=== PATIENT | male | born 1950 | race Caucasian/White ===

== ENCOUNTER → 2021-01-20 01:15 | Outpatient (CLI) | payer OTHER, SELFPAY ==
[2021-01-20 22:45] LABS: SARS-CoV-2 RNA PCR Negative
== END ==
PROVIDERS: PCP Family Medicine Adolescent Medicine; Visit Provider Physician Assistant
DX: R68.89 Other general symptoms and signs (principal); Z20.822 Contact with and (suspected) exposure to COVID-19
CPT/HCPCS: C9803; U0003; U0005

== ENCOUNTER → 2021-08-13 12:48 | Outpatient (CLI) | payer OTHER, SELFPAY ==
--- NOTE | ~2021-08-13 | MR_ITS ---
EXAMINATION: MR brain/brain stem wo con DATE: 08/13/2021 13:27 INDICATION: Amnesia TECHNIQUE: Magnetic resonance imaging (MRI) of the brain and brainstem was performed without intraven ous contrast. Sequences included sagittal and axial T1-weighted SE, axial diffusion-weighted FS SE, a xial T2*-weighted GRE, axial T2-weighted FLAIR Propeller, and axial T2-weighted Propeller. Apparent d iffusion coefficient (ADC) maps were created. COMPARISON: None. FINDINGS: Normal brain parenchymal volume for age. There are scattered mild periventricular and subco rtical white matter changes, most likely related to small vessel ischemic disease (microangiopathy). No ventriculomegaly or midline shift. No acute intracranial hemorrhage, infarction, mass or mass effe ct. Midline sagittal images demonstrate a normal corpus callosum and craniovertebral junction. Orbits are symmetric without disconjugate gaze. IMPRESSION: 1. No acute intracranial abnormality. 2: Chronic age-related findings. Reviewed, dictated and finalized at location A.
== END ==
PROVIDERS: PCP Family Medicine Adolescent Medicine; Visit Provider Family Medicine Adolescent Medicine
DX: R41.3 Other amnesia (principal)
CPT/HCPCS: 70551

== ENCOUNTER 2024-06-07 01:08 | Day surgery (SDC) | payer OTHER, SELFPAY ==
[2024-05-18 11:33] VITALS: BMI 32.1
[2024-06-07 07:51] VITALS: BP 151/79; PULSE 98; RESP 16; TEMP 36.1; O2SAT 96
[2024-06-07] MEDS: LACTATED RINGERS 1,000 ML 150 ML IV CONT (08:03)
[2024-06-07 08:05] LABS: Glucose Point of Care 112 mg/dl (65-105)
--- NOTE | 2024-06-07 08:41 | WPDANESEPPF ---
Anes - Initial Pre Proc Eval Procedure: Operation Date: 06/07/24 09:00 Proposed Procedures p Colonoscopy - Guicho Coronel MD Date/Time: 06/07/24 08:41 Surgeon: Guicho Coronel MD Pre Op Diagnosis: hx colon polyps Patient Data Age: 73 Gender: M Height: 1.7 m Weight: 89 kg Last Vital Signs Temp 96.9 F L 06/07/24 07:51 Pulse 98 06/07/24 07:51 Resp 16 06/07/24 07:51 BP 151/79 H 06/07/24 07:51 Pulse Ox 96 06/07/24 07:51 O2 Del Method Room Air 06/07/24 07:51 Allergies Allergy/AdvReac Type Severity Reaction Status Date / Time sitagliptin Allergy Intermediate Other Verified 06/07/24 07:48 Penicillins Allergy Mild Hives Verified 06/07/24 07:48 metformin AdvReac Intermediate Diarrhea Verified 06/07/24 07:48 pioglitazone AdvReac Intermediate Other Verified 06/07/24 07:48 Home Medications ?Medication ?Instructions ?Recorded ?Confirmed ?Type aspirin 81 mg tablet,delayed 81 mg PO DAILY 07/27/21 06/07/24 History release (Adult Low Dose Aspirin) blood sugar diagnostic (OneTouch #50 ea 05/08/23 06/07/24 Rx Ultra Test strips) carvedilol 25 mg tablet 25 mg PO BID 07/24/23 06/07/24 History losartan 50 mg tablet 50 mg PO DAILY 07/24/23 06/07/24 History amlodipine 10 mg tablet See Rx Instructions .Route 11/30/23 06/07/24 Rx .COMPLEX #90 tabs furosemide 40 mg tablet 40 mg PO QAM #90 tabs 03/30/24 06/07/24 Rx atorvastatin 80 mg tablet 80 mg PO DAILY #90 tabs 05/21/24 06/07/24 Rx tirzepatide 5 mg/0.5 mL 5 mg (0.5 mL) subcut WEEKLY #2 mL 06/01/24 06/07/24 Rx subcutaneous pen injector (Mounjaro) glimepiride 4 mg tablet See Rx Instructions .Route 06/04/24 06/07/24 Rx .COMPLEX #90 tabs Laboratory Tests 06/07/24 08:01 POC Capillary Glucose 112 H mg/dl (65-105) Patient hx anesthesia problems: none Family hx anesthesia problems: none Results Review: All pre-operative results and documents have been reviewed as part of the pre-operative evaluation. [facility] Past Medical History Medical History Abnormal colonoscopy 03/13 3 polyps (1 tubular adenoma) Repeat 03/18 Biceps rupture, distal Surgery 2013 Personal history of malignant neoplasm of prostate Surgical History Surgical History History of appendectomy History of prostatectomy 2019 History of right inguinal hernia repair 2014 Family History Family History Father Hypertension Acute myocardial infarction Family history of cardiovascular disease Heart disease Mother Family history of malignant neoplasm of ovary Other Colon polyp Diabetes mellitus Malignant neoplasm of prostate Social History Social History Smoking status: Never smoker Second hand tobacco smoke exposure: No Alcohol intake: never Substance use: never Substance use type: does not use Living arrangements: with family Occupation/Education: retired Gender identity (if verbalized by the patient): Male Sexual Orientation (if Verbalized by the Patient): Straight or Heterosexual Spiritual care concerns: No Agree to blood products: Yes Anes - Eval Final PreProcedure Day of Procedure 06/07/24 08:41 Patient weight: obese Heart: regular rate and rhythm Lungs: clear to auscultation Airway: Mallampati scale class II Neurological: alert and oriented Last oral intake: >/= 8 hours ASA classification: III Emergent: no Anesthetic plan: proceed Anesthesia type and monitoring: general GIVS and standard monitoring Results Review: All pre-operative results and documents have been reviewed as part of the pre-operative evaluation. Informed Consent: The patient's anesthetic plan and its attendant risks and benefits were discussed with the patient/family/POA. Questions were solicited and answers provided to the satisfaction of the patient/family/POA.
--- NOTE | 2024-06-07 09:03 | PM.HPGS ---
History of Present Illness History of Present Illness Consent: Risks, benefits, and alternatives have been discussed and questions answered. Patient agrees to proceed with procedure. Chief complaint: hx colon polyps Narrative: Balta Allen is a 73 year old male with colon polyp 6 years ago Review of Systems Review of Systems: All systems reviewed & are unremarkable except as noted in HPI and below PMFSH Past Medical History Medical History (Updated 06/07/24 @ 09:05 by Guicho Coronel MD) Colon polyp Biceps rupture, distal Surgery 2014 Abnormal colonoscopy 03/13 3 polyps (1 tubular adenoma) Repeat 03/18 Personal history of malignant neoplasm of prostate Surgical History Surgical History History of prostatectomy 2019 History of right inguinal hernia repair 2014 History of appendectomy Family History Family History Father Hypertension Acute myocardial infarction Family history of cardiovascular disease Heart disease Mother Family history of malignant neoplasm of ovary Other Colon polyp Diabetes mellitus Malignant neoplasm of prostate Social History Social History Smoking status: Never smoker Second hand tobacco smoke exposure: No Alcohol intake: never Substance use: never Substance use type: does not use Living arrangements: with family Occupation/Education: retired Gender identity (if verbalized by the patient): Male Sexual Orientation (if Verbalized by the Patient): Straight or Heterosexual Spiritual care concerns: No Agree to blood products: Yes Meds Home Medications and Allergies Home Medications ?Medication ?Instructions ?Recorded ?Confirmed ?Type aspirin 81 mg tablet,delayed 81 mg PO DAILY 07/27/21 06/07/24 History release (Adult Low Dose Aspirin) blood sugar diagnostic (OneTouch #50 ea 05/08/23 06/07/24 Rx Ultra Test strips) carvedilol 25 mg tablet 25 mg PO BID 07/24/23 06/07/24 History losartan 50 mg tablet 50 mg PO DAILY 07/24/23 06/07/24 History amlodipine 10 mg tablet See Rx Instructions .Route 11/30/23 06/07/24 Rx .COMPLEX #90 tabs furosemide 40 mg tablet 40 mg PO QAM #90 tabs 03/30/24 06/07/24 Rx atorvastatin 80 mg tablet 80 mg PO DAILY #90 tabs 05/21/24 06/07/24 Rx tirzepatide 5 mg/0.5 mL 5 mg (0.5 mL) subcut WEEKLY #2 mL 06/01/24 06/07/24 Rx subcutaneous pen injector (Babs) glimepiride 4 mg tablet See Rx Instructions .Route 06/04/24 06/07/24 Rx .COMPLEX #90 tabs Allergies Allergy/AdvReac Type Severity Reaction Status Date / Time sitagliptin Allergy Intermediate Other Verified 06/07/24 07:48 Penicillins Allergy Mild Hives Verified 06/07/24 07:48 metformin AdvReac Intermediate Diarrhea Verified 06/07/24 07:48 pioglitazone AdvReac Intermediate Other Verified 06/07/24 07:48 Vital Signs Vital Signs - 24 hr 06/07/24 07:51 Temperature 96.9 F L Pulse Rate 98 Respiratory Rate 16 Blood Pressure 151/79 H Pulse Oximetry 96 Oxygen Delivery Room Air Exam Const: General: comfortable and no acute distress HENMT: Face/Nose/Sinus: Normal nares present Eyes: General: appearance normal, both eyes and all related structures Neck: Neck: no JVD Resp: Auscultation: clear to auscultation bilaterally Cardio: Rate: regular rate Rhythm: regular rhythm GI: Inspection: non-distended GI Palp: Yes Soft to palpation Skin: General skin exam: normal color Neuro: Speech: normal speech Extrem: General: normal to inspection Psych: Mental Status: mental status grossly normal Assessment and Plan Assessment and plan (1) Colon polyp: Code(s): K63.5 - Polyp of colon Status: Acute Assessment and Plan: colonoscopy
[2024-06-07 09:28] VITALS: BP 119/73; PULSE 94; RESP 21; O2SAT 94
[2024-06-07 09:38] VITALS: BP 120/74; PULSE 93; RESP 19; O2SAT 94
[2024-06-07 09:48] VITALS: BP 142/78; PULSE 89; RESP 19; O2SAT 95
== END 2024-06-07 10:00 | disposition home or self-care (01) ==
PROVIDERS: PCP Family Medicine Adolescent Medicine; Referring Provider Family Medicine Adolescent Medicine; Visit Provider Internal Medicine Gastroenterology
PROC: 0DJD8ZZ Inspection of Lower Intestinal Tract, Via Natural or Artificial Opening Endoscopic (ICD-10-PCS; CPT 45378; principal; 2024-06-07 09:00)
DX: Z12.11 Encounter for screening for malignant neoplasm of colon (principal); D12.8 Benign neoplasm of rectum; K51.40 Inflammatory polyps of colon without complications; K57.30 Diverticulosis of large intestine without perforation or abscess without bleeding; E66.9 Obesity, unspecified; Z68.30 Body mass index [BMI] 30.0-30.9, adult; Z79.82 Long term (current) use of aspirin; Z79.85 Long-term (current) use of injectable non-insulin antidiabetic drugs; Z79.84 Long term (current) use of oral hypoglycemic drugs; Z98.890 Other specified postprocedural states; Z86.0100 Personal history of colon polyps, unspecified; Z85.46 Personal history of malignant neoplasm of prostate; Z80.42 Family history of malignant neoplasm of prostate; Z80.41 Family history of malignant neoplasm of ovary; Z82.49 Family history of ischemic heart disease and other diseases of the circulatory system
CPT/HCPCS: 45385; 82948; 88305; J2003; J2704; J7120